=== PATIENT | male | born 1955 | race Caucasian/White ===

== ENCOUNTER 2017-08-06 07:20 | Day surgery (SDC) | payer OTHER ==
[2017-08-06 07:48] VITALS: BMI 30.4
--- NOTE | 2017-08-06 08:42 | CP.SDSHP ---
Same Day Surgery H & P - History Proposed Procedure: EGD Pre-Op Diagnosis: SEE NOTES - Previous Medical/Surgical History Cardiac: Hypertension, ASHD/CAD Endocrine/Metabolic: Diabetes, Other Misc: Other Pain: 4.Moderate Pain - Allergies Allergies: Allergies No Known Allergies Allergy (Verified 11/20/12 13:50) - Physical Exam General Appearance: N Vital Signs: Vital Signs 08/06/17 07:54 Temperature 97.0 F L Pulse Rate 61 Respiratory 19 Rate Blood Pressure 127/68 O2 Sat by Pulse 100 Oximetry Mental Status: Alert & Oriented x3 Neuro: WNL Heart: Other Lungs: WNL GI: Other - {Optional Preform as Required} Breast: WNL Abdomen: Other Rectal: Other Integument: WNL : WNL Ortho: Other ENT: WNL - Impression Pt. Evaluated Today:Candidate for Anesthesia & Procedure: Yes - Date & Time Time: 08:42 Short Stay Discharge - Short Stay Discharge Admitting Diagnosis/Reason for Visit: DYSPEPSIA Disposition: HOME/ ROUTINE
[2017-08-06] MEDS ORDERED: Lactated Ringer's 1,000 ML IV ONE (08:43)
[2017-08-06] MEDS ORDERED: Lidocaine Hydrochloride 5 ML INJ ONE (08:45)
[2017-08-06] MEDS ORDERED: Propofol 10 mg/ml Inj (20 ML) ONE (08:45)
[2017-08-06] MEDS ORDERED: Belladonna-Phenobarbital PO ONE (09:25)
[2017-08-06 09:28] VITALS: TEMP 97.8
[2017-08-06 10:00] VITALS: RESP 12; O2SAT 98
[2017-08-06 10:05] VITALS: BP 106/64; PULSE 62
== END 2017-08-06 10:20 | disposition home or self-care (01) ==
LOC: C.ENDO 07:20
PROVIDERS: ATTEND Specialist
DX: K29.00 Acute gastritis without bleeding (principal); K30 Functional dyspepsia; K44.9 Diaphragmatic hernia without obstruction or gangrene; E11.9 Type 2 diabetes mellitus without complications; I10 Essential (primary) hypertension; I25.10 Atherosclerotic heart disease of native coronary artery without angina pectoris
CPT/HCPCS: 43239; 82948; 88305; 88342; J2704; J7120

== ENCOUNTER 2017-08-13 06:46 | Day surgery (SDC) | payer OTHER ==
[2017-08-13] MEDS ORDERED: Propofol 10 mg/ml Inj (20 ML) ONE (08:17)
[2017-08-13] MEDS ORDERED: Lidocaine Hydrochloride 5 ML INJ ONE (08:18)
--- NOTE | 2017-08-13 08:19 | CP.SDSHP ---
Same Day Surgery H & P - History Proposed Procedure: COLONSCOPY Pre-Op Diagnosis: SEE NOTES - Previous Medical/Surgical History Cardiac: Hypertension Pulmonary: Bronchitis Endocrine/Metabolic: Diabetes, Other Previous Surgical History: COLON POLYPS / REMOVED - Allergies Allergies: Allergies No Known Allergies Allergy (Verified 11/20/12 13:50) - Current Medications Current Medications: N - Physical Exam General Appearance: N Vital Signs: Vital Signs 08/13/17 07:10 Temperature 98.4 F Pulse Rate 68 Respiratory 19 Rate Blood Pressure 138/73 O2 Sat by Pulse 97 Oximetry Neuro: WNL Heart: Other Lungs: Other GI: Other - {Optional Preform as Required} Breast: WNL Abdomen: Other Rectal: Other Integument: WNL : WNL Ortho: WNL ENT: WNL - Impression Pt. Evaluated Today:Candidate for Anesthesia & Procedure: Yes - Date & Time Time: 08:19 Short Stay Discharge - Short Stay Discharge Admitting Diagnosis/Reason for Visit: PERSONAL HISTORY OF COLONIC POLYPS Disposition: HOME/ ROUTINE
[2017-08-13] MEDS ORDERED: Belladonna-Phenobarbital PO STA (08:34)
[2017-08-13 09:50] VITALS: O2SAT 99
[2017-08-13 10:18] VITALS: BP 112/61; PULSE 68; RESP 21; TEMP 98.1
== END 2017-08-13 09:55 | disposition home or self-care (01) ==
LOC: C.ENDO 06:46
PROVIDERS: ATTEND Specialist
DX: Z12.11 Encounter for screening for malignant neoplasm of colon (principal); Z86.010 Personal history of colon polyps; K57.30 Diverticulosis of large intestine without perforation or abscess without bleeding; K64.9 Unspecified hemorrhoids
CPT/HCPCS: 45380; 82948; 88305; J2704